=== PATIENT | male | born 1955 | race Caucasian/White ===

== ENCOUNTER → 2023-07-26 09:16 | Outpatient (REF) | payer OTHER, MEDICARE, SELFPAY | LOC: DHCBC HW 09:16 | PROVIDERS: ATTENDING PHYSICIAN Internal Medicine; FAMILY PHYSICIAN Family Medicine | DX: I25.10 Atherosclerotic heart disease of native coronary artery without angina pectoris (principal); I10 Essential (primary) hypertension; I77.810 Thoracic aortic ectasia; I35.1 Nonrheumatic aortic (valve) insufficiency | CPT/HCPCS: 93306 ==

== ENCOUNTER → 2024-01-28 08:41 | Outpatient (REF) | payer MEDICARE, OTHER, SELFPAY | LOC: RAD 08:41 | PROVIDERS: ATTENDING PHYSICIAN Family Medicine | DX: M54.2 Cervicalgia (principal) | CPT/HCPCS: 72052 ==

== ENCOUNTER 2024-07-19 18:15 | Inpatient (IN) | payer OTHER, SELFPAY ==
[2024-07-19] VITALS (9 sets, daily range): BP systolic 126–156; BP diastolic 66–89; BMI 31.6; BMI 29.8
[2024-07-19 11:54] LABS: Glucose - Point of Care 199 mg/dl (70-99)
[2024-07-19] MEDS: NSS 1000 IV ×3 (12:28→20:00)
[2024-07-19 12:45] LABS: % Basophils 0.3 % (0-2); % Eosinophils 0.5 % (0-6); % Immature Granulocytes 0.7 % (0-0.5); % Monocytes 4.3 % (1.7-9.3); % Neutrophils 74.2 % (42.2-75.2); Absolute Immature Granulocytes 0.1 10^3/uL (0-0.05); Absolute Lymphocytes 1.5 10^3/uL (1.2-3.4); Absolute Monocytes 0.3 10^3/uL (0.1-0.6); Absolute Neutrophils 5.7 10^3/uL (1.4-6.5); Hemoglobin 16.7 g/dL (13.0-18.0); Mean Corp Hgb Conc. 35.5 g/dL (33.0-37.0); Mean Corpuscular Hgb 31.5 pg (27.0-31.0); Mean Corpuscular Volume 88.7 fL (80.0-94.0); Mean Platelet Volume 9.8 fL (7.4-10.4); Nucleated Red Blood Cells % 0 % (-); Platelet Count 149 10^3/uL (130-400); Red Cell Dist. Width 13.6 % (11.5-14.5); White Blood Cell Count 7.7 10^3/uL (4.8-10.8)
[2024-07-19 12:46] LABS: Lactic Acid 2.5 mmol/L (0.7-2.0)
[2024-07-19 12:52] LABS: Urine Albumin Negative (Neg - Trace); Urine Bilirubin Negative (Negative); Urine Character Clear (Clear); Urine Color Yellow; Urine Glucose 2+ (Negative); Urine Ketone 1+ (Negative); Urine Leukocyte Negative (Negative); Urine Nitrite Negative (Negative); Urine Occult Blood Negative (Negative); Urine Urobilinogen Negative (Neg - 1+)
--- NOTE | 2024-07-19 12:55 | ED.GENMED ---
History of Present Illness
General
Chief Complaint: Abdominal Symptoms
Source: patient and spouse
Exam Limitations: none
Time Seen by Provider: 07/19/24 12:06
History of Present Illness
History of Present Illness:
Patient started with some nausea last evening. This morning woke up with more nausea some dizziness and disequilibrium followed by rigorous chills. No chest pain no shortness of breath patient denies abdominal pain to me. No fever at home
however. No true vertigo no headache. Symptoms are moderate in nature
Past History
Past History
ED Past Medical History: CAD, HTN, Hypercholesterolemia, NIDDM and CO
ED Past Surgical History: Cardiac (Stent placement in 2020) and Orthopedic (Left forearm surgery, carpal tunnel, knee surgery)
Social History
Tobacco: Non-smoker
Alcohol: Occasional
Drug: None
Personal:
Living: with family
Review of Systems
Review of Systems
All Other Systems: Not applicable
Constitutional: Reports chills; Denies fever
Respiratory: Reports no symptoms
Cardiac: Reports no symptoms
ABD/GI: Denies diarrhea, bloody stools or black stools
Phy Exam
Physical Exam
Physical Exam:
GENERAL: Alert and oriented in no apparent distress. Generally weak appearing walking from the bathroom
EYE: Orbits normal. Extraocular muscles intact no nystagmus
NECK: Supple, no significant adenopathy.
ENT: Pharynx without erythema
CARDIAC: Regular rate and rhythm without any obvious murmurs.
LUNGS: Clear breath sounds,normal
ABDOMEN: Soft, without focal tenderness or distention
NEUROLOGICAL: Alert and oriented , cranial nerves II through XII intact. Speech normal.
SKIN: Warm and dry, no rash or lesion, no discoloration, skin intact.
MUSCULOSKELETAL: No edema,no deformity.Good color
PSYCH: Normal and appropriate interaction.
Course
Orders/Labs/Results
Orders:
Orders
07/19/24 Lunch
1800 calorie (15 carb) Diabetic
At Your Request: Full Participation
Diabetic Diet: Low Lactose
Low Residue
07/19/24 12:06
Cardiac Monitoring- Treatment ONCE
IV Insert/Care/Rem.- Treatment PRN
0.9% Sodium Chloride 1000 ml [Nss] 1,000 ml IV BOLUS
Pulse Ox/cont/shift [RESP] Urgent
Quantity: 1
07/19/24 12:07
Electrocardiogram (*1) Urgent
Reason for Study: Other
Other Reason for Exam: sepsis
EKG- Treatment ONCE
07/19/24 12:21
COVID-19 Antigen Urgent
Source: Nasal Swab
Complete Blood Count/With Diff Urgent
Comprehensive Metabolic Panel Urgent
Lactic Acid Q4H
Comment: CANCEL 2nd LACTIC ACID IF 1st LACTIC ACID IS LESS THAN 2
Lipase Urgent
Blood Culture Q30M
BRIEN Source: Blood/Venous
Specimen Description:
Blood Culture Q30M
BRIEN Source: Blood/Venous
Specimen Description:
Influenza A+B Rapid Molecular Urgent
BRIEN Source: Nasal Swab
Specimen Description:
07/19/24 12:44
Urinalysis Reflex To Culture Urgent
Date Specimen was Collected: 07/19/24
Time Specimen was Collected: 12:34
07/19/24 13:13
CT Abd/Pel (IV only)-DH only Urgent
Comment:
Reason For Exam: Lower abdominal pain/chills/nausea
CT Head W/o Iv Contrast Urgent
Comment:
Reason For Exam: Disequilibrium/nausea
07/19/24 13:20
Piperacillin/Tazo 3.375 Gram [Zosyn] 3.375 gram in 50 ml IV NOW
07/19/24 13:23
0.9% Sodium Chloride 1000 ml [Nss] 1,000 ml IV BOLUS
07/19/24 16:30
Ketorolac [Toradol] 15 mg IV NOW STA
07/19/24 17:32
Admit/Transfer Patient As Directed
Co-Sign Provider:
Level of Care: Inpatient admission
Assign to:: Telemetry
Physician / Group: Flora Jade
Diagnosis: enteritis, lactic acidosis
Reason for Telemetry: Chest Pain syndromes
Date to Stop Telemetry: 07/21/24
Time to Stop Telemetry: 11:00
Reason for Hospitalization: enteritis, lactic acidosis
Expected length of stay greater than two midnights?: Yes
ELOS- Estimated Length of Stay in days: 3
I certify the patient meets the requirements for IP care: Yes
PRN Pain Medication Management As Directed
May give lesser potent ordered pain med per pt: Yes
preference::
Protocol:: Medication orders for pain may be administered in a
manner that supports deferring to patient preference
when the pt is:
- Requesting an ordered lesser potent pain medication.
Least to most potent pain medications are defined
as: acetaminophen < NSAID < tramadol < opioids
(morphine, oxycodone, hydromorphone).
- Requesting a lesser dose of the same medication IF
ORDERED.
- Requesting a less intrusive route of administration
if both routes are prescribed by the provider (PO <
IV).
07/19/24 17:34
Code Status As Directed
Resuscitation Status: Full Code
07/19/24 19:02
0.9% Sodium Chloride 1000 ml [Nss] 1,000 ml IV 80 mls/hr
Acetaminophen [Tylenol] 650 mg PO Q4HPRN PRN
Dextrose 50%-Water [Dextrose 50% Syringe] 12.5 grams IV [id number] PRN
Enoxaparin Sodium [Lovenox] 40 mg SC QPM
Glucagon [GlucaGen] 1 mg IM PRN PRN
Ondansetron Injectable [Zofran] 4 mg IV Q6HPRN PRN
07/19/24 19:02
Activity As Directed
Activity Level: As Tolerated
Bedside Glucose Monitoring As Directed
Frequency: AC&HS
Additional Instructions:: Change to q6h if pt on TPN, tube feeding or not eating
Vital Signs As Directed
Frequency: Per unit guidelines
DX Deep Vein Thrombosis Video Routine
07/19/24 20:00
Piperacillin/Tazo 3.375 Gram [Zosyn] 3.375 gram in 50 ml IV Q6H
07/19/24 21:50
Lactate Level [Lactic Acid] Q6H
07/19/24 22:00
Aspirin Low Dose EC [Aspir Low (Enteric Coated)] 81 mg PO HS
Atorvastatin [Lipitor] 40 mg PO HS
Escitalopram Oxalate [Lexapro] 10 mg PO HS
Ketorolac [Toradol] 10 mg IV Q6HPRN PRN
Lisinopril [Zestril] 20 mg PO HS
Montelukast Sodium [Singulair] 10 mg PO HS
07/20/24 07:30
Insulin Aspart Corrective Low [Novolog Flexpen-Low Resistance] See Protocol SC AC
07/20/24 07:46
Basic Metabolic Panel IN AM
Complete Blood Count/No Diff IN AM
Glycohemoglobin (HgbA1c) IN AM
Magnesium IN AM
07/21/24 11:00
DC Protocol for Telemetry ONCE
Abnormal Lab Results
07/19/24 07/19/24 07/19/24
11:52 12:21 12:44
MCH 31.5 H pg
(27.0-31.0)
Abs Immat Gran (auto) 0.1 H 10^3/uL
(0-0.05)
Immature Gran % 0.7 H %
(0-0.5)
Lymphocytes % 20.0 L %
(20.5-51.1)
Glucose 226 H mg/dl
(70-99)
Lactic Acid 2.5 H mmol/L
(0.7-2.0)
Urine Ketones 1+ A
(Negative)
Urine Glucose 2+ A
(Negative)
POC Glucose 199 H mg/dl
(70-99)
07/19/24 12:21
07/19/24 12:21
Vital Signs
Initial and Last Documented VS:
Initial Vital Signs
Temp Pulse Resp BP Pulse Ox
97.5 F 74 18 143/74 100
07/19/24 11:46 07/19/24 11:46 07/19/24 11:46 07/19/24 11:46 07/19/24 11:46
Last Documented Vital Signs
Temp Pulse Resp BP Pulse Ox
97.4 F 66 17 142/71 99
07/20/24 14:28 07/20/24 14:28 07/20/24 14:28 07/20/24 14:28 07/20/24 14:28
MDM/Problems Addressed
Differential Diagnosis Includes:
Large differential for patient's symptoms. He has some infectious-like symptoms with the rigors and chills and nausea. However he has no respiratory symptoms that abdomen is nontender. He has a history of kidney stones. This would be in the
differential within the rectum kidney stone although no flank or back pain. COVID, flu in the differential. Central neurologic issue unlikely given the rigors and chills although that with the disequilibrium and nausea this would also be in the
differential. Workup in progress.
*Radiology
Radiology exam reviewed: radiology read reviewed (Head CT negative. Enteritis by CT)
*Pulse Oximetry
Patient hypoxic: no
*EKG
Interpreted by ED Provider?: Yes
Interpretation: normal
Comparison EKG: no changes
Heart Rate: 67
Rate: normal
Rhythm: sinus
[place]: normal axis
Interval: normal interval
QRS Pattern: normal QRS
Ischemia: no ischemia
*Cnc Maintenance Mechanic Interpretation
Rate: normal
Interpretation: normal
Heart Rate: 68
Rhythm: sinus
*Critical Care Note
Total Time (30-74mins, 75-104mins- exclusive of procedures): Not Applicable
Data Reviewed
Review of Other/Old Records Reveals: Labs, Records and Testing
Update Note
Update Note:
1320... Patient rechecked. Clinically stable. Stable vital signs. Complaining of some minor raspy throat. However airway is clear there is minimal pharyngeal erythema. Neck is supple. No respiratory distress. Abdomen nontender. Patient does
have an elevated lactic acid. Also had rigors chills prior to ER arrival. Etiology of this complex is still uncertain. We will CT the head and CT abdomen and pelvis. Cover with antibiotics with the lactic acid and rigors. Will admit to the
hospital.
ED Attending Note
-
Portions of this chart may have been created with voice recognition software.� Occasional wrong word or��sound alike� substitutions may have occurred due to the inherent limitations of voice recognition software.
Discharge Plan
Departure
Patient Disposition: Admit
Date of Disposition: 07/19/24
Time of Disposition: 16:19
Presentation/result/management discussed w/ accepting MD/DO: Hospitalist
Discharge Problem:
Enteritis, Lactic acidosis
Interventions
Interventions:
*Risk Screen - Suicide Last Done: 07/19/24 20:18
*General Assessment Last Done: 07/19/24 11:46
*Neglect/Abuse Screening Last Done: 07/19/24 11:46
*ED- Fall Risk Assessment Last Done: 07/19/24 12:25
*ED COVID-19 Vaccine History Last Done: 07/19/24 12:25
*Nursing Disposition Last Done: 07/19/24 18:18
AP-Ybmqtc-Yfeoszhekc Assessment Last Done: 07/19/24 12:25
Discharge Date and Time
Discharge Date/Time: 07/19/24 19:03
[2024-07-19 13:02] LABS: ALT (SGPT) 28 U/L (0-50); AST (SGOT) 21 U/L (17-59); Albumin 4.3 g/dl (3.5-5.0); Alkaline Phosphatase 85 U/L (38-126); Blood Urea Nitrogen 20 mg/dl (9-20); COVID-19 Antigen Negative (Negative); Calcium 9.5 mg/dl (8.4-10.2); Carbon Dioxide 22 mmol/L (22-30); Chloride 103 mmol/L (98-107); Estimated Creatinine Clearance 103 ml/min; Glucose 226 mg/dl (70-99); Lipase 148 U/L (23-300); Potassium 4.5 mmol/L (3.5-5.1); Sodium 135 mmol/L (135-145); Total Bilirubin 1.2 mg/dl (0.2-1.3); Total Protein 6.5 g/dl (6.3-8.2); eGFR > 60.00
[2024-07-19] MEDS: ZOSYN 50 IV ×2 (13:27→20:01)
[2024-07-19] MEDS: TORADOL 15 MG IV (16:38)
--- NOTE | 2024-07-19 16:55 | HPS.HSE ---
Family Physician
-
Family Physician: Nicky Rae
Chief Complaint
-
Nausea and Chills
History of Present Illness
Mr. Shaan Morillo is a 68 yo man with hx CAD s/p PCI 2020, HTN, HLD, NIDDM presents to the ER with nausea/vomiting and rigors.
Patient states he felt a little nauseated last night. He woke up early this morning with significant nausea and dizziness. He went back to bed. When he woke up later he was able to eat a small breakfast. He laid on the couch and had severe
nausea, he felt as if he couldn't move. They called 911. En route with EMS he had vomiting x 3. He was witnessed to have severe rigors by EMS. He was given IV Zofran by EMS. He complained of lower abdominal pain which resolved upon arrival here
after he had a normal BM. He currently denies severe dizziness or nausea but feels 'hazy.'
No measured fevers at home. No chest pain or shortness of breath. No LE swelling. No current vertigo. No focal numbness/weakness.
He was started on Ozempic 3 years ago for DM, switched to Mounjaro 6 months ago with dose recently lowered a few weeks ago. He feels more nauseated in few days post taking this med.
He received Toradol for neck pain (has hx cervical DJD and is due for a steroid shot).
Medical History
Past Medical History
Past Medical History: Reports Other ( s/p PCI 2020, HTN, HLD, NIDDM)
Past Surgical History: Reports Orthopedic
Social History
Tobacco: Non-smoker
Alcohol: None
Family History
Family History: Not pertinent
Allergies / Home Medications
Allergies reflects when Allergies were last updated in [facility].
Home Medications with original date entered in [facility]
Allergy/Medication List:
Allergies
Allergy/AdvReac Type Severity Reaction Status Date / Time
No Known Allergies Allergy Verified 07/19/24 11:46
Home Medications
cyanocobalamin (vitamin B-12) 1,000 mcg tablet 1,000 mcg PO DAILY 02/16/21
icosapent ethyl 1 gram capsule (Vascepa) 2 gm PO BID 02/16/21
lisinopril 20 mg tablet 20 mg PO HS 02/16/21
aspirin 81 mg tablet,delayed release 81 mg PO HS 11/05/22
atorvastatin 40 mg tablet 40 mg PO HS 11/05/22
metformin 500 mg tablet,extended release 24 hr 1,000 mg PO DAILY 11/05/22
carboxymethylcellulose 0.5 %-glycerin 0.9 % eye drops (Refresh Optive) 1 drp BOTH EYES BIDPRN PRN dryness from pataday 07/19/24
escitalopram oxalate 10 mg tablet (Lexapro) 10 mg PO HS 07/19/24
fluticasone propionate 50 mcg/actuation nasal spray,suspension 1 spray intranasal BIDPRN PRN allergies 07/19/24
ibuprofen 200 mg tablet (Advil) 400 mg PO Q6HPRN PRN mild pain 07/19/24
metronidazole 500 mg tablet 500 mg PO TIDPRN PRN diverticulitis 07/19/24
montelukast 10 mg tablet (Singulair) 10 mg PO HS 07/19/24
olopatadine 0.2 % eye drops 1 drp BOTH EYES DAILYPRN PRN allergies 07/19/24
Review of Systems
-
History Source: Patient
A 12 point ROS was completed and negative except as noted: Yes
Physical Exam
Vital Signs
Vital Signs
Temp Pulse Resp BP Pulse Ox
97.5 F 80 16 126/66 96
07/19/24 11:46 07/19/24 16:30 07/19/24 16:15 07/19/24 16:00 07/19/24 16:30
Physical Exam
General: No Apparent Distress
HEENT: PERRLA
Respiratory: Clear; No Wheezes
Cardiac: S1/S2 and Regular Rhythm
GI: Soft and Non Tender
Musculoskeletal: No Edema
Skin: Warm and Dry; No Rash
Neuro: AO x 3
Psych: Calm
Laboratory Results
-
07/19/24 12:21
07/19/24 12:21
Laboratory Results
Lactic Acid 2.5 mmol/L (0.7-2.0) H 07/19/24 12:21
Total Bilirubin 1.2 mg/dl (0.2-1.3) 07/19/24 12:21
AST 21 U/L (17-59) 07/19/24 12:21
ALT 28 U/L (0-50) 07/19/24 12:21
Alkaline Phosphatase 85 U/L (38-126) 07/19/24 12:21
Lipase 148 U/L (23-300) 07/19/24 12:21
Data Reviewed
-
Diagnostic Radiology: Report Reviewed by me
Lab Data: Labs Reviewed by me
Impression/Plan
-
Mr. Shaan Morillo is a 68 yo man with hx CAD s/p PCI 2020, HTN, HLD, NIDDM presents to the ER with nausea/vomiting and rigors.
Triage VS: T 97.5, P 74, RR 18, BP 143/74, SpO2 100%
LABS: WBC 7.7, HG 16.7, PLT 149, Na 135, K+ 4.5, Cl 103, CO2 22, BUN 20, Cr 0.8, Glucose 226
Lactate 2.5
UA with neg leuk esterase
covid and Flu negative
HEAD CT
IMPRESSION: No acute intracranial abnormality.
CT A/P
IMPRESSION:
1. Air-fluid levels throughout normal caliber small bowel loops, a finding that may be seen in association with ileus or enteritis. Otherwise, no signs of an acute intra-abdominal process identified.
2. Mild changes of pulmonary fibrosis.
3. Hepatomegaly.
4. Cholelithiasis.
5. Diverticulosis without diverticulitis.
6. Small fat-containing umbilical and bilateral inguinal hernias.
MAR: Toradol, IVF, IV Zosyn
Rigors and Dizziness
Lactic Acidosis
Enteritis seen on CT
-Unclear presentation, report of witnessed severe rigors raises concern for bacteremia. Symptoms currently improved post Zofran and fluids.
-admit to telemetry
-continue IV Zosyn
-F/U blood cultures
-trend lactate
-low lactose/LRD diet
CAD s/p PCI 2020
-DIESEL ENGINE II PIPE FITTER asa/statin
Essential HTN
-DIESEL ENGINE II PIPE FITTER Lisinopril with hold parameters
HLD
-DIESEL ENGINE II PIPE FITTER statin
NIDDM
-hold DIESEL ENGINE II PIPE FITTER metformin in setting of lactic acidosis
-ISS low
-diabetic diet
-hold DIESEL ENGINE II PIPE FITTER Mounjaro - consider discontinuing med permanently - discussed with patient
Cervical Spine DJD
-PRN Toradol
DVT PPx Lovenox subQ
FULL CODE
[2024-07-19 19:35] LABS: Glucose - Point of Care 89 mg/dl (70-99)
[2024-07-19] MEDS: LOVENOX 40 MG SC (20:01)
[2024-07-19] MEDS: ASPIR LOW (ENTERIC COATED) 81 MG PO (20:22)
[2024-07-19] MEDS: ZESTRIL 20 MG PO (20:22)
[2024-07-19] MEDS: LIPITOR 40 MG PO (20:22)
[2024-07-19] MEDS: LEXAPRO 10 MG PO (20:22)
[2024-07-19] MEDS: SINGULAIR 10 MG PO (20:22)
[2024-07-19 21:25] LABS: Glucose - Point of Care 117 mg/dl (70-99)
[2024-07-19 22:09] LABS: Lactic Acid 1.7 mmol/L (0.7-2.0)
[2024-07-20] MEDS: ZOSYN 50 IV ×3 (01:41→13:28)
[2024-07-20 03:00] VITALS: BP 124/70
[2024-07-20 07:46] VITALS: BP 130/72
[2024-07-20] MEDS: NSS IV (08:26)
[2024-07-20] MEDS: NOVOLOG FLEXPEN-LOW RESISTANCE SC (08:26)
[2024-07-20] MEDS: TYLENOL 650 MG PO (08:32)
[2024-07-20 08:34] LABS: Hematocrit 41.3 % (39.0-52.0); Hemoglobin 14.5 g/dL (13.0-18.0); Mean Corp Hgb Conc. 35.1 g/dL (33.0-37.0); Mean Corpuscular Hgb 31.6 pg (27.0-31.0); Mean Platelet Volume 9.9 fL (7.4-10.4); Platelet Count 138 10^3/uL (130-400); Red Blood Cell Count 4.59 10^6/uL (4.70-6.10); Red Cell Dist. Width 13.9 % (11.5-14.5); White Blood Cell Count 6.2 10^3/uL (4.8-10.8)
[2024-07-20 09:33] LABS: Blood Urea Nitrogen 15 mg/dl (9-20); Calcium 9.2 mg/dl (8.4-10.2); Carbon Dioxide 24 mmol/L (22-30); Chloride 107 mmol/L (98-107); Estimated Creatinine Clearance 74 ml/min; Glucose 141 mg/dl (70-99); Potassium 4.2 mmol/L (3.5-5.1); Sodium 139 mmol/L (135-145); eGFR > 60.00
[2024-07-20 10:13] LABS: Hepatitis C Antibody Negative (Negative)
[2024-07-20 11:40] VITALS: BP 134/69
[2024-07-20 11:47] LABS: Glucose - Point of Care 168 mg/dl (70-99)
[2024-07-20] MEDS: NOVOLOG FLEXPEN-LOW RESISTANCE 1 UNITS SC (11:58)
--- NOTE | 2024-07-20 13:51 | W.DCSUMMARY ---
Discharge Summary
Discharge Data
Date of Admission: 07/19/24
Date of Discharge: 07/20/24
-
Pending Results: No
Hospital Course
Mr. Morillo is a 68-year-old male with a medical history of CAD (PCI 2020), hypertension, and NIDDM who presented via EMS with nausea vomiting and rigors. He vomited multiple times at home with associated dizziness and weakness. He was given a
dose of Zofran by EMS with improvement in his symptoms. In the ED, labs were remarkable for elevated lactate of 2.5 initially which resolved so within normal limits after IV fluid administration. Otherwise labs were normal including LFTs and
lipase. Respiratory panel was negative for influenza and COVID-19. Imaging of his abdomen and pelvis showed evidence of ileitis/enteritis. He was given IV fluids and started on antibiotics with Zosyn. Approximately 12 hours after admission, his
symptoms resolved. He was able to tolerate a regular diet. Repeat labs remained within normal limits and cultures remain negative to date. He will be discharged to home with a prescription for oral antibiotics to complete a total 5-day course.
He will also be given a prescription for Zofran to use as needed for recurrent nausea. He should follow-up with his primary care physician after hospital discharge for ongoing care. At time of hospital discharge he was hemodynamically stable.
Gen-AAOx3, NAD
HEENT-NC, AT, anicteric, clear oral mm
Neck-supple
CV-reg, no M, +S1/S2
Lungs-clear B/L
Abd-soft, NT, ND
Musculoskeletal-no edema, no deformity
Skin-warm and dry
Neuro-grossly non-focal
Psych-calm, cooperative
More than 30 minutes spent in discharge including
Final examination of the patient
Summarizing hospital stay
Instructions for continuing care to all relevant caregivers
Preparation of discharge records, prescriptions, and referral forms
Total time spent (in minutes): 45
Discharge Plan
-
Patient Disposition: Home (Routine Discharge)
Discharge Diagnosis/Procedures: Enteritis
Diet: As tolerated
Activity: No restrictions
Activity Restrictions/Additional Instructions:
Mr. Morillo is a 68-year-old male with a medical history of CAD (PCI 2020), hypertension, and NIDDM who presented via EMS with nausea vomiting and rigors. He vomited multiple times at home with associated dizziness and weakness. He was given a
dose of Zofran by EMS with improvement in his symptoms. In the ED, labs were remarkable for elevated lactate of 2.5 initially which resolved so within normal limits after IV fluid administration. Otherwise labs were normal including LFTs and
lipase. Respiratory panel was negative for influenza and COVID-19. Imaging of his abdomen and pelvis showed evidence of ileitis/enteritis. He was given IV fluids and started on antibiotics with Zosyn. Approximately 12 hours after admission, his
symptoms resolved. He was able to tolerate a regular diet. Repeat labs remained within normal limits and cultures remain negative to date. He will be discharged to home with a prescription for oral antibiotics to complete a total 5-day course.
He will also be given a prescription for Zofran to use as needed for recurrent nausea. He should follow-up with his primary care physician after hospital discharge for ongoing care. At time of hospital discharge he was hemodynamically stable.
Referrals:
Nicky Rae DO [Family Provider] -
Prescriptions:
New
ondansetron 4 mg tablet,disintegrating
4 mg PO Q8H PRN (Reason: nausea and vomiting) Qty: 10 0RF
amoxicillin-pot clavulanate [Augmentin] 500-125 mg tablet
1 tab PO BID 4 Days Qty: 8 0RF
Continued
lisinopril 20 MG tablet
20 mg PO HS
cyanocobalamin (vitamin B-12) 1,000 MCG tablet
1,000 mcg PO DAILY
icosapent ethyl [Vascepa] 1 GM capsule
2 gm PO BID
atorvastatin 40 mg Tablet
40 mg PO HS
aspirin 81 mg Tablet,Delayed Release (Dr/Ec)
81 mg PO HS
metformin 500 mg Tablet Extended Release 24 Hr
1,000 mg PO DAILY
metronidazole 500 mg Tablet
500 mg PO TIDPRN PRN (Reason: diverticulitis)
ibuprofen [Advil] 200 mg Tablet
400 mg PO Q6HPRN PRN (Reason: mild pain)
montelukast [Singulair] 10 mg Tablet
10 mg PO HS
fluticasone propionate 50 mcg/actuation [place],Suspension
1 spray INTRANASAL BIDPRN PRN (Reason: allergies)
escitalopram oxalate [Lexapro] 10 mg Tablet
10 mg PO HS
olopatadine 0.2 % Drops
1 drp BOTH EYES DAILYPRN PRN (Reason: allergies)
Refresh Optive 0.5-0.9 % Drops
1 drp BOTH EYES BIDPRN PRN (Reason: dryness from pataday)
Discharge Orders:
Discharge Patient (As Directed); Ordered 07/20/24
Ordered By: Hermes Rucker
Discharge Date and Time
Print Language: [place]
--- NOTE | 2024-07-20 14:09 | CM ---
CM reviewed medical records. Patient is medically ready for discharge. No further needs identified.
PLAN: home no needs.
[2024-07-20 14:28] VITALS: BP 142/71
== END 2024-07-20 14:50 | disposition home or self-care (01) | DRG 392 ==
LOC: 1 ACUTE 18:15
PROVIDERS: ADMITTING PHYSICIAN Student in an Organized Health Care Education/Training Program; ATTENDING PHYSICIAN Internal Medicine; EMERGENCY PHYSICIAN Emergency Medicine; FAMILY PHYSICIAN Family Medicine
DX: K52.9 Noninfective gastroenteritis and colitis, unspecified (principal); E87.20 Acidosis, unspecified; I10 Essential (primary) hypertension; I25.10 Atherosclerotic heart disease of native coronary artery without angina pectoris; E78.00 Pure hypercholesterolemia, unspecified; E11.9 Type 2 diabetes mellitus without complications; J84.10 Pulmonary fibrosis, unspecified; K80.20 Calculus of gallbladder without cholecystitis without obstruction; K40.20 Bilateral inguinal hernia, without obstruction or gangrene, not specified as recurrent; K57.30 Diverticulosis of large intestine without perforation or abscess without bleeding; Z95.5 Presence of coronary angioplasty implant and graft; Z79.82 Long term (current) use of aspirin; Z79.84 Long term (current) use of oral hypoglycemic drugs; Z79.899 Other long term (current) drug therapy; Z11.52 Encounter for screening for COVID-19
CPT/HCPCS: 70450; 74177; 80048; 80053; 81003; 82962; 83036; 83605; 83690; 83735; 85025; 85027; 86803; 87040; 87502; 87811; 93005; 96361; 96365; 96375; 99285; Q9967

== ENCOUNTER → 2025-04-17 12:33 | Outpatient (REF) | payer OTHER, SELFPAY | LOC: RCS 12:33 | PROVIDERS: ATTENDING PHYSICIAN Internal Medicine; FAMILY PHYSICIAN Family Medicine | DX: I25.10 Atherosclerotic heart disease of native coronary artery without angina pectoris (principal); I35.1 Nonrheumatic aortic (valve) insufficiency; I77.810 Thoracic aortic ectasia | CPT/HCPCS: 93306 ==